=== PATIENT | female | born 1985 | race Caucasian/White ===

== ENCOUNTER 2017-10-23 06:30 | Outpatient (CLI) | payer MEDICAID ==
[2017-10-23] MEDS: TERBUTALINE 1 MG/ML INJ SC (08:25)
[2017-10-23 08:42] LABS: URINE PH (Dip) POC 6.5 (5.0-8.5)
[2017-10-23 08:42] LABS: URINE BLOOD (Dip) POC Negative (NEGATIVE); URINE GLUCOSE (Dip) POC Negative (NEGATIVE); URINE KETONES (Dip) POC Negative (NEGATIVE); URINE LEUKOCYTE EST (Dip) POC Negative (NEGATIVE); URINE NITRITE (Dip) POC Negative (NEGATIVE); URINE TOTAL PROTEIN POC Negative (NEGATIVE)
[2017-10-23 11:04] LABS: ADD UMIC NO; UR ASCORBIC ACID NEGATIVE (NEGATIVE); UR BILIRUBIN (Dip) NEGATIVE (NEGATIVE); UR BLOOD (Dip) NEGATIVE (NEGATIVE); UR CLARITY CLEAR (CLEAR); UR COLOR STRAW (YELLOW); UR GLUCOSE (Dip) NEGATIVE (NEGATIVE); UR KETONES (Dip) NEGATIVE (NEGATIVE); UR LEUKOCYTE ESTERASE (Dip) NEGATIVE Leu/ul (NEGATIVE); UR NITRITE (Dip) NEGATIVE (NEGATIVE); UR SPECIFIC GRAVITY (Dip) 1.004 (1.003-1.030); UR TOTAL PROTEIN (Dip) NEGATIVE (NEGATIVE); UR UROBILINOGEN (Dip) NEGATIVE (NEGATIVE)
== END 2017-10-23 08:51 | disposition home or self-care (01) ==
LOC: OBT 06:30 → L-D 06:30 → OBT 08:51
DX: O62.9 Abnormality of forces of labor, unspecified (principal); Z3A.25 25 weeks gestation of pregnancy
CPT/HCPCS: 76817; 76818; 81003; 87086

== ENCOUNTER 2018-01-12 22:34 | Inpatient (IN) | payer MEDICAID ==
[2018-01-12] MEDS: LACTATED RINGER'S 1,000 ML IV ×3 (22:50→23:43)
[2018-01-12] MEDS: TERBUTALINE 1 MG/ML INJ SC (22:56)
[2018-01-12] MEDS ORDERED: TERBUTALINE 1 ML (22:59)
[2018-01-12] MEDS ORDERED: OXYTOCIN 30 UNITS/LR 500 ML IV (23:00)
[2018-01-12] MEDS ORDERED: CEFAZOLIN 2 GM/50 ML (PMX) 50 ML IV (23:00)
[2018-01-12] MEDS ORDERED: METHYLERGONOVINE 0.2 MG INJ IM (23:00)
[2018-01-12] MEDS ORDERED: CARBOPROST 250 MCG INJ IM (23:00)
[2018-01-12] MEDS ORDERED: MISOPROSTOL 200 MCG TAB PR (23:00)
[2018-01-12 23:06] LABS: ADD MAN DIFF? NO
[2018-01-12 23:11] LABS: WHITE BLOOD COUNT 9.6 10^3/ul (4.8-10.8)
[2018-01-12 23:11] LABS: BASOPHILS % 0.2 % (0.0-2.0); EOSINOPHILS % 0.3 % (0.0-7.0); HEMATOCRIT 32.7 % (37.0-47.0); HEMOGLOBIN 10.7 g/dl (12.0-16.0); LYMPHOCYTES # 2.2 10^3/ul (0.8-2.9); LYMPHOCYTES % 23.1 % (15.0-51.0); MEAN CORPUSCULAR HEMOGLOBIN 25.8 pg (29.0-33.0); MEAN CORPUSCULAR HGB CONC 32.7 g/dl (32.0-37.0); MEAN PLATELET VOLUME 11.5 fl (7.4-10.4); MONOCYTE # 0.6 10^3/ul (0.3-0.9); NEUTROPHIL # 6.7 10^3/ul (1.6-7.5); NEUTROPHILS % 70.1 % (39.0-77.0); PLATELET COUNT 261 10^3/UL (140-415); RED BLOOD COUNT 4.14 10^6/ul (4.20-5.40)
[2018-01-12] MEDS ORDERED: morphine SULFATE/PF (10 MG/10 ML) INJ (23:21)
[2018-01-12] MEDS ORDERED: BUPIVACAINE 0.75%/DEXT (SPINAL) 2 ML INJ (23:22)
[2018-01-12] MEDS ORDERED: CEFAZOLIN 2 GM/50 ML (PMX) 50 ML IVPB (23:24)
[2018-01-12 23:29] LABS: INR 0.83; PARTIAL THROMBOPLASTIN TIME 26.2 Sec (23.0-35.0); PROTIME 11.5 Sec (11.9-14.9); PT RATIO 0.9
[2018-01-12] MEDS ORDERED: PHENYLephrine 10 MG INJ (23:31)
[2018-01-12] MEDS ORDERED: OXYTOCIN 10 UNIT INJ (23:50)
[2018-01-12] MEDS ORDERED: MIDAZOLAM 1 MG/ML 2 ML INJ (23:52)
[2018-01-12] MEDS ORDERED: ONDANSETRON 4 MG INJ (23:53)
[2018-01-13] MEDS ORDERED: ZOLPIDEM 5 MG TAB PO
[2018-01-13] MEDS ORDERED: MIDAZOLAM 1 MG/ML 2 ML INJ IV
[2018-01-13] MEDS ORDERED: DIPHENHYDRAMINE 50 MG INJ IV ×2
[2018-01-13] MEDS ORDERED: HYDROmorphONE 0.5 MG/0.5 ML SYG IV
[2018-01-13] MEDS ORDERED: MEPERIDINE 25 MG INJ IV
[2018-01-13] MEDS ORDERED: NALOXONE (0.4 MG/ML) INJ IV
[2018-01-13] MEDS ORDERED: NALBUPHINE HCL (10 MG/1 ML) INJ IV
[2018-01-13 00:01] LABS: HEPATITIS B SURFACE ANTIGEN NEGATIVE (NEGATIVE)
[2018-01-13] MEDS ORDERED: OXYTOCIN 10 UNIT INJ ×2 (00:09)
[2018-01-13] MEDS: AZITHROMYCIN 500MG/NS (PMX) 250 ML IVPB (01:08)
[2018-01-13] MEDS: OXYTOCIN 30 UNITS/LR 500 ML IV (01:11)
[2018-01-13] MEDS: HYDROmorphONE 0.5 MG/0.5 ML SYG IV (03:42)
[2018-01-13] MEDS: CEFAZOLIN 2 GM/50 ML (PMX) 50 ML IV (04:30)
[2018-01-13] MEDS ORDERED: MISOPROSTOL 200 MCG TAB PR (04:30)
[2018-01-13] MEDS ORDERED: NA PHOSPHATE/BIPHOS 133 ML ENEMA PR (04:30)
[2018-01-13] MEDS ORDERED: OXYCODONE/ACETAMINOPHEN (5/325) TAB PO (04:30)
[2018-01-13] MEDS ORDERED: OXYTOCIN 30 UNITS/LR 500 ML IV (04:30)
[2018-01-13] MEDS ORDERED: CARBOPROST 250 MCG INJ IM (04:30)
[2018-01-13] MEDS ORDERED: METHYLERGONOVINE 0.2 MG INJ IM (04:30)
[2018-01-13] MEDS: CLINDAMYCIN 300 MG CAP PO ×3 (05:40→18:18)
[2018-01-13] MEDS: CEFAZOLIN 2 GM/50 ML (PMX) 50 ML IVPB ×3 (05:40→22:56)
[2018-01-13] MEDS: LACTATED RINGER'S 1,000 ML IV ×3 (09:01→20:13)
[2018-01-13] MEDS: SENNA/DOCUSATE NA (8.6MG/50MG) TAB PO ×2 (09:01→22:56)
[2018-01-13 09:14] LABS: ADD MAN DIFF? NO
[2018-01-13 09:20] LABS: WHITE BLOOD COUNT 10.6 10^3/ul (4.8-10.8)
[2018-01-13 09:20] LABS: BASOPHILS % 0.1 % (0.0-2.0); EOSINOPHILS % 0.2 % (0.0-7.0); HEMATOCRIT 27.8 % (37.0-47.0); HEMOGLOBIN 9.1 g/dl (12.0-16.0); LYMPHOCYTES # 2.4 10^3/ul (0.8-2.9); LYMPHOCYTES % 22.2 % (15.0-51.0); MEAN CORPUSCULAR HEMOGLOBIN 25.9 pg (29.0-33.0); MEAN CORPUSCULAR HGB CONC 32.7 g/dl (32.0-37.0); MEAN CORPUSCULAR VOLUME 79.2 fl (82.0-101.0); MEAN PLATELET VOLUME 11.7 fl (7.4-10.4); MONOCYTE # 0.5 10^3/ul (0.3-0.9); MONOCYTES % 4.9 % (0.0-11.0); NEUTROPHIL # 7.7 10^3/ul (1.6-7.5); NEUTROPHILS % 72.2 % (39.0-77.0); PLATELET COUNT 222 10^3/UL (140-415); RED BLOOD COUNT 3.51 10^6/ul (4.20-5.40)
[2018-01-13] MEDS: BISACODYL 10 MG SUPP PR (12:30)
[2018-01-13] MEDS: KETOROLAC 30 MG INJ IV ×2 (16:32→22:57)
[2018-01-13] MEDS: INFLUENZA VIRUS VACCINE 0.5 ML (DISPENSING) IM* (18:06)
[2018-01-13 22:29] LABS: RAPID PLASMA REAGIN NONREACTIVE (NR)
[2018-01-13] MEDS: IBUPROFEN 800 MG TAB PO (23:59)
[2018-01-14] MEDS: LACTATED RINGER'S 1,000 ML IV (04:13)
[2018-01-14] MEDS: CLINDAMYCIN 300 MG CAP PO ×4 (05:51→17:47)
[2018-01-14] MEDS: IBUPROFEN 800 MG TAB PO ×3 (05:53→22:01)
[2018-01-14] MEDS: SENNA/DOCUSATE NA (8.6MG/50MG) TAB PO ×2 (09:22→21:12)
[2018-01-14] MEDS: BISACODYL 10 MG SUPP PR (10:24)
[2018-01-14] MEDS: HYDROCODONE/APAP (5/325) TAB PO (12:07)
[2018-01-15] MEDS: CLINDAMYCIN 300 MG CAP PO ×3 (00:10→12:15)
[2018-01-15] MEDS: HYDROCODONE/APAP (5/325) TAB PO (04:23)
[2018-01-15] MEDS: IBUPROFEN 800 MG TAB PO ×2 (06:17→14:00)
[2018-01-15] MEDS: LANOLIN 7 GM TUBE TOP (07:31)
[2018-01-15] MEDS: SENNA/DOCUSATE NA (8.6MG/50MG) TAB PO (09:00)
[2018-01-16] MEDS ORDERED: MEASLES,MUMPS,RUBELLA VACCINE INJ SC* (09:00)
[2018-01-16] MEDS ORDERED: DIPHTH/TET/ACEL PERTUSS (ADULT) 0.5 ML VIAL IM* (09:00)
== END 2018-01-15 14:20 | disposition home or self-care (01) | DRG 788 ==
LOC: OBT 22:34 → L-D 01-13 01:14 → PP1 01-13 04:10 → OBT 22:50 → L-D 22:50
PROVIDERS: Obstetrics & Gynecology
PROC: 10D00Z1 Extraction of Products of Conception, Low, Open Approach (ICD-10-PCS; principal; 2018-01-13)
DX: O34.211 Maternal care for low transverse scar from previous cesarean delivery (principal); Z3A.37 37 weeks gestation of pregnancy; Z37.0 Single live birth
CPT/HCPCS: 71046; 85025; 85610; 85730; 86592; 86850; 86900; 86901; 87340; 90686; 99464

== ENCOUNTER 2018-03-13 15:11 | Day surgery (SDC) | payer MEDICAID ==
[2018-03-13] MEDS ORDERED: CEFAZOLIN 2 GM/50 ML (PMX) 50 ML IVPB ×2 (15:30→18:30)
[2018-03-13] MEDS ORDERED: LACTATED RINGER'S 1,000 ML (ENTER RATE) IV* (15:30)
[2018-03-13 15:49] LABS: ADD MAN DIFF? NO
[2018-03-13 15:51] LABS: WHITE BLOOD COUNT 6.4 10^3/ul (4.8-10.8)
[2018-03-13 15:51] LABS: BASOPHILS % 0.3 % (0.0-2.0); EOSINOPHILS # 0.1 10^3/ul (0.0-0.5); EOSINOPHILS % 1.7 % (0.0-7.0); HEMATOCRIT 37.3 % (37.0-47.0); HEMOGLOBIN 12.2 g/dl (12.0-16.0); LYMPHOCYTES # 2.5 10^3/ul (0.8-2.9); LYMPHOCYTES % 38.6 % (15.0-51.0); MEAN CORPUSCULAR HEMOGLOBIN 25.6 pg (29.0-33.0); MEAN CORPUSCULAR HGB CONC 32.7 g/dl (32.0-37.0); MEAN CORPUSCULAR VOLUME 78.2 fl (82.0-101.0); MEAN PLATELET VOLUME 10.5 fl (7.4-10.4); MONOCYTE # 0.5 10^3/ul (0.3-0.9); MONOCYTES % 7.5 % (0.0-11.0); NEUTROPHIL # 3.3 10^3/ul (1.6-7.5); NEUTROPHILS % 51.7 % (39.0-77.0); PLATELET COUNT 245 10^3/UL (140-415); RED BLOOD COUNT 4.77 10^6/ul (4.20-5.40); RED CELL DISTRIBUTION WIDTH 17.1 % (11.5-14.5)
[2018-03-13 16:10] LABS: INR 0.92; PROTIME 12.4 Sec (11.9-14.9)
[2018-03-13 16:11] LABS: PARTIAL THROMBOPLASTIN TIME 28.5 Sec (23.0-35.0)
[2018-03-13] MEDS ORDERED: LIDOCAINE 100 MG SYRINGE (16:16)
[2018-03-13] MEDS ORDERED: FENTAnyl 50 MCG/ML VIAL ×2 (16:16→17:58)
[2018-03-13] MEDS ORDERED: SUGAMMADEX SODIUM 200 MG/2 ML VIAL IV (16:16)
[2018-03-13] MEDS ORDERED: ONDANSETRON 4 MG INJ (16:16)
[2018-03-13] MEDS ORDERED: PROPOFOL 20 ML (16:16)
[2018-03-13] MEDS ORDERED: ROCURONIUM 50 MG INJ (16:16)
[2018-03-13] MEDS ORDERED: DEXAMETHASONE 4 MG/ML 5 ML INJ (16:16)
[2018-03-13] MEDS ORDERED: MIDAZOLAM 1 MG/ML 2 ML INJ (16:16)
[2018-03-13] MEDS ORDERED: HYDROmorphONE 1 MG/5 ML IV SYRINGE IV ×2 (16:30)
[2018-03-13] MEDS ORDERED: hydrALAzine 20 MG INJ IV (16:30)
[2018-03-13] MEDS ORDERED: METOCLOPRAMIDE 10 MG INJ IV (16:30)
[2018-03-13] MEDS ORDERED: LABETALOL HCL 20MG INJ IV (16:30)
[2018-03-13] MEDS ORDERED: ONDANSETRON 4 MG INJ IV (16:30)
[2018-03-13] MEDS ORDERED: FENTAnyl 50 MCG/ML VIAL IV ×2 (16:30)
[2018-03-13] MEDS: BUPIVACAINE 0.5%/EPI (SDV) 30 ML INJ (17:14)
[2018-03-13] MEDS ORDERED: LACTATED RINGER'S 1,000 ML IV (18:11)
[2018-03-13] MEDS: MEPERIDINE 25 MG INJ IV (18:22)
[2018-03-13] MEDS: BUTORPHANOL 2 MG INJ IM (18:36)
[2018-03-13] MEDS: KETOROLAC 30 MG INJ IM (18:37)
[2018-03-13] MEDS: DOXYCYCLINE 100 MG TAB PO (18:47)
== END 2018-03-13 20:17 | disposition home or self-care (01) ==
LOC: SDS 15:11
DX: Z30.2 Encounter for sterilization (principal)
CPT/HCPCS: 58670; 85025; 85610; 85730